=== PATIENT | female | born 1965 | race African-American/Black ===

== ENCOUNTER 2019-04-04 22:59 | Emergency (ER) | payer BC ==
[~2019-04-04] VITALS: Ht 160 cm; Wt 77.1 kg
--- OUTSIDE RECORDS SUMMARY | 2019-04-04 23:02 | XMS REPORT | Clinical Summary ---
Author Author [facility] Organization [facility] Address Unknown Phone Unavailable Care Team Providers Care Dental Hygiene Professor Name Role Phone Viet Roberts MD PCP Allergies No Known Allergies Medications End Date Status Medication Sig Dispensed Refills Start Date Active methylPREDNISolone Follow 21 tablet 0 (MEDROL) 4 mg dose directions 8 packIndications: from dose Arthralgia of both hands pack. Active cyclobenzaprine Take 1 tablet 30 tablet 0 (FLEXERIL) 10 mg by mouth 3 8 tabletIndications: Left times daily hand pain as needed for Muscle Spasms. Active ibuprofen (MOTRIN) 800 mg Take 1 tablet 60 tablet 0 tabletIndications: Left by mouth 8 hand pain every 8 hours as needed for Pain. Active gabapentin (NEURONTIN) Take 1 30 capsule 0 300 mg capsule by 8 capsuleIndications: Left mouth at hand pain bedtime nightly. Active acetaminophen-codeine Take 1 tablet 25 tablet 0 (TYLENOL/CODEINE #3) by mouth 9 300-30 mg per nightly at tabletIndications: bedtime as Bilateral carpal tunnel needed for syndrome Pain. Active omeprazole (PRILOSEC) 20 Take 1 90 capsule 1 mg delayed release capsule by 9 capsuleIndications: mouth daily. Abdominal pain, epigastric Active ibuprofen (MOTRIN) 800 mg Take 1 tablet 30 tablet 0 tabletIndications: by mouth 9 Bilateral carpal tunnel every 12 syndrome hours as needed for Pain. 12/09/2018 Discontinued omeprazole (PRILOSEC) 20 Take 20 mg by 0 mg delayed release mouth daily. capsule 02/09/2019 Discontinued omeprazole (PRILOSEC) 20 Take 1 90 capsule 1 mg delayed release capsule by 9 capsuleIndications: mouth daily. Abdominal pain, epigastric Status Hospital, Clinic, or Ordered Dose Route Frequency Start End Date Other Facility Date Administered Medication Ended lidocaine 1 % (XYLOCAINE) 1 mL IJ ONCE 05/07/20 injection 1 mL 18 8 Ended lidocaine 1 % (XYLOCAINE) 1 mL IJ ONCE 05/07/20 injection 1 mL 18 8 Ended triamcinolone acetonide 20 mg IX ONCE 05/07/20 (KENALOG-40) injection 20 18 8 mg Ended triamcinolone acetonide 20 mg IX ONCE 05/07/20 (KENALOG-40) injection 20 18 8 mg Active Problems No known active problems Encounters Care Team Description Date Type Specialty Beverly Zavala MD Hernandez Blanco, Yllen Y, ResidentVA Bilateral carpal tunnel syndrome (Primary Dx); Abdominal pain, epigastric; Pre-op chest exam 02/09/2019 Office Visit Internal Medicine Beverly Zavala MD 02/07/2019 Pre-Clinic Internal Medicine Review Marlon Arriaga MD Abdominal pain, epigastric (Primary Dx) 12/09/2018 Office Visit Family Practice Lennie Mcwilliams 10/27/2018 Nurse Triage Andrez Gutierrez MD Bilateral carpal tunnel syndrome (Primary Dx) 05/07/2018 Office Visit Family Practice Andrez Gutierrez MD Bilateral carpal tunnel syndrome (Primary Dx); Prediabetes 04/19/2018 Office Visit Family Practice Nichol Houser MD Tan, Faye C, MD Bilateral carpal tunnel syndrome (Primary Dx) 04/08/2018 Procedure Visit Physical Medicine and Rehab after 04/03/2018 Immunizations Name Administration Dates Next Due Tdap (Tetanus Toxoid, 02/18/2018 Reduced Diphtheria Toxoid And Acellular Pertussis, Absorbed) Family History Medical History Relation Name Comments Hypertension Brother 3 Cancer Father Hypertension Father Arthritis Mother Cancer Mother Diabetes Mother Hypertension Mother Hypertension Sister 1 Relation Name Status Comments Brother Alive 4 Brother Father Mother Sister Alive 2 Sister Social History Date Tobacco Use Types Packs/Day Years Used Light Tobacco Smoker Cigarettes 0.5 Smokeless Tobacco: Never Used Tobacco Cessation: Counseling Given: No Comments: 2 cig per day Drinks/Week oz/Week Comments Alcohol Use 0-1 Standard drinks or equivalent 0.0 - 0.5 social Yes Food Insecurity Answer Date Recorded Within the past 12 months, you worried that your Never true 02/18/2018 food would run out before you got money to buy more. Within the past 12 months, the food you bought Never true 02/18/2018 just didn't last and you didn't have money to get more. Sex Assigned at Date Recorded Not on file Industry Job Start Date Occupation Not on file Not on file Not on file Travel End Travel History Travel Start No recent travel history available. Last Filed Vital Signs Reading Time Taken Comments Vital Sign 176/81 02/09/2019 1:55 PM CDT Blood Pressure 74 02/09/2019 1:55 PM CDT Pulse 36.7 C (98.1 F) 02/09/2019 1:55 PM CDT Temperature 18 02/09/2019 1:55 PM CDT Respiratory Rate - - Oxygen Saturation - - Inhaled Oxygen Concentration 80.3 kg (177 lb) 02/09/2019 1:55 PM CDT Weight 152.4 cm (5') 12/09/2018 2:02 PM CDT Height 34.57 12/09/2018 2:02 PM CDT Body Mass Index Plan of Treatment Care Team Description Date Type Specialty Felix Carlisle NP [phone] Ref#: [id number] 04/05/2019 Office Visit Plastic Surgery Health Maintenance Due Date Last Done Comments Colorectal Cancer Scrn 11/19/2013 Annual (FIT/FOBT) Age 50 to 75 Cervical Cancer Scrn (3 02/18/2019 02/19/2016 (Previously completed - Yrs) External), 10/10/2011 Breast Cancer Scrn 02/25/2019 02/25/2018 (Yearly) Procedures Comments Procedure Name Priority Date/Time Associated Diagnosis 12 LEAD EKG Routine 02/09/2019 Pre-op chest exam 4:11 PM CDT EMG CONSULT OUTPATIENT Routine 04/08/2018 Pain in both hands 1:30 PM CDT after 04/03/2018 Results * 12 LEAD EKG (02/09/2019 4:11 PM CDT) 12 LEAD EKG FOR [facility] Date:2019-02-09 Pat Name: DARCY POWER epartment: Room: Gender: Mechanic Field Service: [id number] :[id number] 11-19 Requested By: BEVERLY ZAVALA Order Number: [id number] Reading MD: Mukesh Buck Measurements Intervals [place] Rate: 74 P:38 AL: 147 QRS: 49 QRSD: 86 T:52 QT: 413 QTc:458 Interpretive Statements SINUS RHYTHM WITH OCCASIONAL SUPRAVENTRICULAR PREMATURE COMPLEXES Poor R Wave Progression Non-specific T wave abnormality Electronically Signed On 02-10-2019 11:17:08 CDT by Mukesh Buck Specimen Performing Organization Address City/State/Zipcode Phone Number SMS * EMG CONSULT OUTPATIENT (04/08/2018 1:30 PM CDT) Narrative Performed At Keila Travis MD 04/09/2018 10:50 AM [facility], DEPT [address] [place] [address] ELECTROMYOGRAPHY REPORT NAME : PEDRO PABLO AVALOS GENDER: Female DATE OF : 1965 ORDERING PHYSICIAN: ANDREZ CHIANG DATE :04/08/2018 14:08 NOTE: RESULTS NOT VALID WITHOUT ATTENDING PHYSICIAN ELECTRONIC SIGNATURE REASON FOR REFERRAL: BILATERAL HAND PAIN WITH TINGLING CC: BILATERAL HAND PAIN WITH TINGLING HPI: THE PATIENT IS A 52 Y/O R-HANDED WHO PRESENTS WITH BILATERAL L>>R HAND PAIN WITH TINGLING. SHE HAS HAD SYMPTOMS FOR OVER 10 YEARS BUT IT DIDN T GET BAD UNTIL ABOUT 6 MONTHS AGO.SHE IS EXPERIENCING PAINFUL NUMBNESS AND TINGLING IN ALL 5 FINGERS. SHE DENIES NECK PAIN OR SYMPTOMS ABOVE HER WRISTS.SHE ENDORSES HAND WEAKNESS AND IS UNABLE TO HOLD THINGS PROPERLY.HER SYMPTOMS ARE WORSE DURING THE DAY, AND SHE DOES NOT FEEL TOO MUCH AT NIGHT WHEN SHE IS AT REST.SHE WAS PRESCRIBED GABAPENTIN BUT HAS YET TO TRY IT. 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 PHYSICAL EXAM VITALS: T98, HR 60, RR 16 CONSTITUTIONAL: GEN APPREARANCE: NAD, PLEASANT MUSCULOSKELETAL: DIGITS AND NAILS:NO PITTING OR CLUBBING INSPECTION: NO ATROPHY PALPATION:FULL MUSCLE BULK, NONTENDER STRENGTH: MILDLY WEAKER ON LEFT WHICH SEEMS TO BE RELATED TO PAIN INHIBITION (PATIENTS STATES HER JOINTS ARE SORE) TONE: NORMAL TONE GAIT: NO GAIT AID SPECIAL TESTS:POS 1ST [facility] GRIND TEST ON LEFTNEG TINELS AT B/L WRISTS AND ELBOWS, SKIN: INSPECTION: NO RASH PALPATION: NL TURGOR NEUROLOGIC: SENSATION: INTACT BILATERALLY TO COARSE TOUCH IN C5-T1 DERMATOMES AND MEDIAN, ULNAR, RADIAL NERVE DISTRIBUTIONS, ALTHOUGH PATIENT DID MENTION THAT SHE FELT SUPERIMPOSED TINGLING IN THE HAND DTR:BILATERAL BICEPS 2+ / TRICEPS 0+ / BRACHIORADIALIS 2+ PSYCHIATRIC: ORIENTATION: TO NAME AND MEMORY : GOOD RECALL OF PRECEDING EVENTS MOOD / AFFECT: APPROPRIATE RESIDENT PHYSICIAN: YOANA GORDON EDX Sensory Nerve / Sites Rec. Site Distance Onset Levy Onset Lat Peak Lat Amp Temp. mm m/s ms ms V C R Median - Digit III (Antidromic) Wrist Dig III 140 28.3 4.9 5.7 8.2 32.7 R Ulnar - Digit V (Antidromic) Wrist Dig V 140 59.7 2.3 3.2 27.5 32.6 L Median - Digit III (Antidromic) Wrist Dig III 140 28.0 5.0 6.5 12.6 32.1 L Ulnar - Digit V (Antidromic) Wrist Dig V 140 58.4 2.4 3.1 29.9 32.1 Motor Nerve / Sites Rec. Site Distance Velocity Latency Amplitude Temp. mm m/s ms mV C R Median - APB Wrist APB 805.6 11.1 32.1 Elbow APB 220 54.2 9.7 11.0 32.2 R Ulnar - ADM Wrist ADM 802.7 11.4 32.1 B.Elbow ADM 175 63.4 5.4 10.6 32.1 L Median - APB Wrist APB 806.0 12.3 31.6 Elbow APB 210 56.0 9.7 12.3 31.6 L Ulnar - ADM Wrist ADM 802.4 10.2 31.5 B.Elbow ADM 203 63.9 5.6 10.1 31.5 EMG EMG Summary Table Spontaneous MUAP Comment Muscle IA Fib PSW Fasc Other Effort Recruit Dur Amp Polys Comment L. Abductor pollicis brevis Normal 0 0 None . Normal Normal Normal Normal None . R. Abductor pollicis brevis Normal 0 0 None . Normal Normal Normal Normal None . NERVE SUMMARY: Upper extremity NCS SENSORY: RIGHT MEDIAN: PROLONGED PEAK LATENCY, DECREASED AMPLITUDE RIGHT ULNAR: NORMAL PEAK LATENCY, NORMAL AMPLITUDE LEFT MEDIAN: PROLONGED PEAK LATENCY, NORMAL AMPLITUDE LEFT ULNAR: NORMAL PEAK LATENCY, NORMAL AMPLITUDE MOTOR: RIGHT MEDIAN: PROLONGED ONSET LATENCY, NORMAL AMPLITUDE, NORMAL CONDUCTION VELOCITY RIGHT ULNAR: NORMAL ONSET LATENCY, NORMAL AMPLITUDE, NORMAL CONDUCTION VELOCITY LEFT MEDIAN: PROLONGED ONSET LATENCY, NORMAL AMPLITUDE, NORMAL CONDUCTION VELOCITY LEFT ULNAR: NORMAL ONSET LATENCY, NORMAL AMPLITUDE, NORMAL CONDUCTION VELOCITY MUSCLE SUMMARY: PIN EXAMS TO B/L APB WNL ATTENDING PHYSICIAN CONCLUSION: I WAS PRESENT FOR THE GALE PORTION OF THE NCS/EMG PROCEDURE WITH DR. LEES ON 04/08/2018. I SAW AND EVALUATED THE PATIENT. I REVIEWED THE RESIDENT S NOTE AND AGREE. LABS, IMAGING, AND PERTINENT MEDICAL RECORDS REVIEWED AND SUMMARIZED FROM [facility] ABOVE. 1. ABNORMAL STUDY. 2. ELECTRODIAGNOSTIC EVIDENCE OF A RIGHT MODERATE MEDIAN MONONEUROPATHY AT THE WRIST: SENSORY, MOTOR, DEMYELINATING, AXONAL. 3. ELECTRODIAGNOSTIC EVIDENCE OF A LEFT MODERATE MEDIAN MONONEUROPATHY AT THE WRIST: SENSORY, MOTOR, DEMYELINATING. 4. NO ELECTRODIAGNOSTIC EVIDENCE OF BILATERAL UPPER LIMB PERIPHERAL POLYNEUROPATHY IN AREAS TESTED. 5. NO EVIDENCE OF RADICULAR SYMPTOMS AT THIS TIME. PLEASE RECONSULT FOR ADDITIONAL TESTING IF NEEDED. PLAN: FOLLOW UP WITH THE REFERRING PHYSICIAN. FACULTY:[facility] ELECTRODIAGNOSTIC LABORATORY NORMAL REFERENCE VALUES FOR COMMON NERVE CONDUCTION STUDIES References used for this table from: 1. Eliceo and Raquel, Manual of Nerve Conduction Studies, 2nd edition, 2006, [employer], [place], [place] (for a complete listing please refer to this manual) and2. * Enrike Miramontes, and Tia, Electrodiagnostic Medicine, 2nd edition, 2002, [employer], [place], [place]. Skin temperature should be > 32 degrees Celsius in the upper limb and > 30 degrees Celsius in the lower limb. Final determination of normality will be made by Attending Physician taking in consideration conditions of testing. Motor Nerve Studies NerveCV(M/s)Onset latency (ms) Amplitude (mV) F-wave (ms) Axillary to Deltoid --<5.4 ms >4.6 mV-- Median to APB (8cm) >49 M/sec <4.5 ms >5 mV*<31.6 ms Musculocut.to Biceps --<5.6 ms > 4.0mV-- Radial to EDC (8cm) >54 M/sec <3.5 ms >4.3 mV-- Suprascapular (Supraspinatus) --<4.3 ms >1.6 mV-- (IS)--<4.8 ms >1.5 mV-- Ulnar to ADM (8cm) (W to BE) > 52 M/sec 2.3-4.4 ms>6.1 +/- 1.9 mV* <31.5 ms (BE to AE) > 43 M/sec Ulnar to FDI --<4.6 ms >5.1 mV-- Femoral to quads (above ligament) --<8.5 ms 0.2 11mV -- (below ligament) --<7.4 ms 0.2 11mV -- Peroneal to EDB (8cm) (ankle to fib head) >38 M/sec <6.5 ms >1.3 mV <61.2 ms (>2.6 mV if under 40 yo) (across knee) >42 M/sec Peroneal to TA >43 M/sec <4.9 ms >1.7 mV-- Tibial to AH (8cm) >39 M/sec <6.1 ms >4.4 mV<61.4 ms Sensory Nerve Studies Nerve CV (M/s) Peak latency (ms) Amplitude (V)-onset to peak Lat. antebrach.cut. --<2.5 ms >5 V Med. antebrach cut. --<2.6 ms >4 V Median to digit 2,3 (14cm) --<3.7 ms*>10 V (>15-19 V if under 50 yo) Radial to base thumb (10cm)--<2.8 ms >7 V Ulnar to digit 5 (14cm) --<3.7 ms*>6 V (>11-14 V if under 50 yo) Dorsal ulnar cut. (10cm) --<2.9 ms >5 V Comparison studies: Median/Radial to thumb --<3.1/3.0 ms>10/3 V Median/Ulnar transcarpal --<2.4/2.4 ms>10/4 V Median/Ulnar 4th digit--<4.1/3.9 ms>5/5 V Lat. fem. cut. (Spevak) >51 M/sec <6.0 ms 2.0 +/- 1.0 V Med. fem. cut.--<3.5 ms 3.4-7.9 V Superficial peroneal (14cm)--<4.2 ms 7.7 +/- 3.9 V Sural (14 cm)--<4.5 ms 10-50 V Plantar (14 cm) (Medial)--<3.7 ms 10-30 V (Lateral)--<3.7 ms 8-20 V Other Nerve Conductions Onset latency (ms) Amplitude (mV) H-reflex to FCR<18.9 ms> 0.8 mV H-reflex to gastrocnemius<35 ms -- Blink reflex(R1) <13 ms (R2 ipsi/contra)<40/41 ms Cranial VII (preauricular)2.8-4.1 ms (postauricular)3.2- 4/4 ms Cranial XI1.7-3.0 ms> 3-4 mV after 04/03/2018 Insurance Type Payer Benefit Subscriber ID Effective Phone Address Plan / Dates Group BC/BS BC/BS PPO xxxxxxxxxxxx 2018-P [phone] [id number] [place] [id number]
--- OUTSIDE RECORDS SUMMARY | 2019-04-04 23:02 | XMS REPORT ---
Author Author [facility] Address Unknown Phone Unavailable Care Team Providers Care Hemstitching Machine Operator Name Role Phone Unavailable Unavailable Problems This patient has no known problems. Allergies, Adverse Reactions, Alerts This patient has no known allergies or adverse reactions. Medications This patient has no known medications. Encounters Start Date/Time End Date/Time Encounter Type Admission Type Attending [facility] Care Department Encounter ID 2019-04-16 00:00:00 2019-04-16 00:00:00 Outpatient [facility] [id number] 2019-04-05 00:00:00 2019-04-05 00:00:00 Outpatient [facility] [id number] 2019-02-09 13:53:58 2019-02-09 13:53:58 Outpatient [facility] [id number] 2019-02-09 00:00:00 2019-02-09 00:00:00 Outpatient [facility] [id number] 2018-12-21 00:00:00 2018-12-21 00:00:00 Outpatient [facility] [id number] 2018-12-09 14:02:18 2018-12-09 14:02:18 Outpatient [facility] [id number] 2018-05-07 15:14:30 2018-05-07 15:14:30 Outpatient [facility] [id number] 2018-04-19 15:03:17 2018-04-19 15:03:17 Outpatient [facility] [id number] 2018-04-08 13:08:36 2018-04-08 13:08:36 Outpatient [facility] [id number] 2018-02-25 09:57:30 2018-02-25 09:57:30 Outpatient [facility] [id number] 2018-02-23 00:00:00 2018-02-23 00:00:00 Outpatient [facility] [id number] 2018-02-19 00:00:00 2018-02-19 00:00:00 Outpatient [facility] [id number] 2018-02-18 14:59:15 2018-02-18 14:59:15 Outpatient [facility] [id number] 2018-02-18 13:17:36 2018-02-18 13:17:36 Outpatient [facility] [id number] 2018-02-03 11:00:10 2018-02-03 11:00:10 Outpatient [facility] [id number] 2018-01-19 16:32:23 2018-01-19 16:32:23 Outpatient [facility] [id number]
--- NOTE | 2019-04-05 00:40 | Diagnostic Imaging Report ---
EXAMINATION: PA and lateral views of the chest. COMPARISON: None CLINICAL HISTORY: Congestion and cough DISCUSSION: Lines/tubes: None. Lungs: The lungs are well inflated and clear. There is no evidence of pneumonia or pulmonary edema. Pleura: There is no pleural effusion or pneumothorax. Heart and mediastinum: Cardiomediastinal silhouette is unremarkable. Pulmonary vasculature is normal. Bones and soft tissues: No acute bony abnormalities. IMPRESSION: No acute cardiopulmonary abnormalities. Signed by: Dr. Singh Leroy M.D. on 04/05/2019 12:37 AM
== END 2019-04-05 01:12 | disposition home or self-care (01) ==
LOC: ER 22:59
DX: R05 Cough (principal); J20.9 Acute bronchitis, unspecified; J30.2 Other seasonal allergic rhinitis
CPT/HCPCS: 71046; 99283